=== PATIENT | male | born 1975 | race Hispanic/Latino ===

== ENCOUNTER → 2019-10-30 | Outpatient (CLI) | payer BC | END | disposition home or self-care (01) | LOC: RAH 14:19 | PROVIDERS: ATTEND Family Medicine | DX: E05.90 Thyrotoxicosis, unspecified without thyrotoxic crisis or storm (principal); E03.9 Hypothyroidism, unspecified | CPT/HCPCS: 76536 ==

== ENCOUNTER → 2022-07-30 | Outpatient (CLI) | payer OTHER | END | disposition home or self-care (01) | LOC: RAH 10:59 | PROVIDERS: ATTEND Family Medicine | DX: E03.9 Hypothyroidism, unspecified (principal) | CPT/HCPCS: 76536 ==